=== PATIENT | female | born 1990 | race Caucasian/White ===

== ENCOUNTER 2018-02-26 00:31 | Inpatient (IN) | payer OTHER ==
[2018-02-26] MEDS ORDERED: Oxytocin 10 UNITS/ML VIAL ONE (00:58)
[2018-02-26] MEDS ORDERED: Ondansetron PF 4 MG/2 ML Vial IVP PRN (01:12)
[2018-02-26] MEDS ORDERED: Milk Of Magnesia 30 ML UDCUP PO PRN ×2 (01:12→10:29)
[2018-02-26] MEDS ORDERED: Bisacodyl 10 MG SUPP PR PRN ×2 (01:12→10:29)
[2018-02-26] MEDS ORDERED: Lidocaine 1% (PF) 30 ML VIAL SC PRN (01:12)
[2018-02-26] MEDS ORDERED: Adacel (T-DAP) 0.5 ML VIAL IM ONE ×2 (01:12→10:29)
[2018-02-26] MEDS ORDERED: HYDROcodone/Acetaminophen 5/325 mg Tablet PO PRN ×2 (01:12→10:29)
[2018-02-26] MEDS ORDERED: Promethazine HCl 25 MG/ML VIAL IM PRN (01:12)
[2018-02-26] MEDS ORDERED: NS / Oxytocin 40 units/1000ml 1,000 ML IV PRN (01:12)
[2018-02-26] MEDS ORDERED: NS / Oxytocin 40 units/1000ml 1,000 ML IV SCH (01:15)
[2018-02-26 01:27] VITALS: BMI 32.2
[2018-02-26] MEDS: HYDROcodone/Acetaminophen 5/325 mg Tablet PO PRN ×2 (02:00→02:44)
[2018-02-26 03:00] LABS: Mean Corpuscular HGB CONC 33.6 g/dL (32.0-36.0); Mean Corpuscular Hemoglobin 30.6 pg (27.0-31.0); Mean Corpuscular Volume 91.1 fL (78.0-98.0); Mean Platelet Volume 7.4 fL (7.4-10.4); Platelet Count 227 thou/uL (130-400); RBC Distribution Width 13.2 % (11.5-14.5); Red Blood Cell (RBC) Count 4.58 mill/uL (4.20-5.40)
[2018-02-26] MEDS ORDERED: Labetalol 100 MG TAB PO SCH (03:30)
[2018-02-26 03:37] LABS: HBSAg Index 0.21 S/CO (0-0.99); Hep B Surf Ag Non-Reactive S/CO (NonReactive)
[2018-02-26 04:29] LABS: Syphilis Antibody Nonreactive (Nonreactive); Syphilis Antibody Index 0.03 S/CO (<1.00 Non-Reactive)
[2018-02-26 04:42] LABS: ALT (SGPT) 11 U/L (8-55); AST (SGOT) 16 U/L (5-34); Albumin 3.1 g/dL (3.5-5.0); Alkaline Phosphatase 167 U/L (40-150); Anion Gap 13 mmol/L (10-20); BUN (Urea Nitrogen) 22 mg/dL (7.0-18.7); Bilirubin, Total 0.2 mg/dL (0.2-1.2); Calc. Creatinine Clearance 136 mL/min (70-130); Calcium 8.6 mg/dL (7.8-10.44); Carbon Dioxide 21 mmol/L (22-29); Chloride 105 mmol/L (98-107); Estimated GFR-MDRD 82; Globulin 2.6 g/dL (2.4-3.5); Glucose 108 mg/dL (70-105); Potassium 4.1 mmol/L (3.5-5.1); Protein, Total 5.7 g/dL (6.0-8.3); Sodium 135 mmol/L (136-145)
[2018-02-26] MEDS ORDERED: Docusate Calcium (SURFAK) 240 MG CAP PO SCH (09:00)
[2018-02-26] MEDS: Ferrous Sulfate 325 MG TAB PO SCH ×3 (09:11→15:17)
[2018-02-26] MEDS ORDERED: Benzocaine/Menthol 20-0.5% 60 ML CAN TOP PRN (10:29)
[2018-02-26] MEDS ORDERED: Lanolin Ointment 7 GM TUBE TOP PRN (10:29)
--- NOTE | 2018-02-26 10:29 | PDOC.LDHP ---
Labor and Delivery H&P Chief complaint: contractions, loss of fluid HPI: CTX started at home, labored at home until painful, arrived to L&D complete and pushing. Rapid delivery by OB hospitalist. Current gestational age (weeks): 39 Due date: 02/28/18 Dating criteria: last menstrual period, first trimester ultrasound Grav: 2 Para: 1 OB History Details: Low risk except GDM A1 - well controlled Current complications: gestational diabetes Abnormal US findings: No Past Medical History: None Current medications: pre-gómez vitamins Previous surgical history: none Allergies/Adverse Reactions: Allergies Allergy/AdvReac Type Severity Reaction Status Date / Time No Known Allergies Allergy Verified 02/26/18 01:19 Social history: none - Physical Exam Vital signs reviewed and normal: yes General: NAD, resting, other Heart: RRR Lungs: nonlabored breathing Abdomen: NTTP Extremeties: no edema - Vaginal Exam cm dilated: 10 Effacement: 100% Station: 3+ - OB Labs Blood type: O RH: positive Antibody Screen: negative HIV: negative RPR: negative HEPSAg: negative 1 hour GCT: positive GBS: negative Urine drug screen: not done Rubella: immune - Assessment L&D Assessment: term patient in labor (Precipitous vaginal delivery - see Dr. Bills's notes for details of the delivery.)
[2018-02-26] MEDS ORDERED: Ibuprofen 800 MG TAB PO SCH (14:00)
[2018-02-26] MEDS: Ibuprofen 800 MG TAB PO SCH (17:58)
[2018-02-26] MEDS: Docusate Calcium (SURFAK) 240 MG CAP PO SCH (21:27)
[2018-02-27] MEDS: Ibuprofen 800 MG TAB PO SCH ×2 (02:12→09:29)
[2018-02-27 08:08] VITALS: BP 142/87; TEMP 97.6
[2018-02-27] MEDS: Docusate Calcium (SURFAK) 240 MG CAP PO SCH (09:28)
[2018-02-27] MEDS: Ferrous Sulfate 325 MG TAB PO SCH (09:28)
--- NOTE | 2018-02-27 09:55 | PDOC.PP ---
Post Progress Note Post Day #: 1 Subjective: No c/o. Routine PP care. well. PO intake tolerated: yes Flatus: yes Ambulation: yes Vital Signs (12 hours) Temp Pulse Resp BP BP Pulse Ox 02/27/18 08:00 97.6 F 72 20 142/87 H 97 02/27/18 00:30 97.9 F 81 16 135/83 96 Weight Weight 188 lb - Physical Examination General: NAD Cardiovascular: no m/r/g, RRR Respiratory: clear to auscultation bilaterally, non-labored breathing Abdominal: + bowel sounds, lochia, no distention, appropriately TTP Result Diagrams: 02/26/18 02:50 02/26/18 02:50 Additional Labs: Post Labs Blood Type O POSITIVE 02/26/18 02:50 Hep Bs Antigen Non-Reactive S/CO (NonReactive) 02/26/18 02:50 (1) Active labor at term Code(s): LFO1589 - Status: Acute (2) Vaginal delivery Code(s): O80 - ENCOUNTER FOR FULL-TERM UNCOMPLICATED DELIVERY Status: Acute - Assessment/Plan Routine care D/C home today F/U in 6 weeks.
== END 2018-02-27 14:17 | disposition home or self-care (01) | DRG 807 ==
LOC: L&D/OP 00:31 → L&D-LIB 01:35 → 3SE 09:10
PROVIDERS: ADMIT Family Medicine; ATTEND Family Medicine
PROC: 10E0XZZ Delivery of Products of Conception, External Approach (ICD-10-PCS; principal; 2018-02-26)
DX: O24.420 Gestational diabetes mellitus in childbirth, diet controlled (principal); Z37.0 Single live birth; Z3A.39 39 weeks gestation of pregnancy
CPT/HCPCS: 36415; 80053; 84156; 85027; 86780; 86850; 86900; 86901; 86922; 87340; J2590

== ENCOUNTER 2018-03-13 19:41 | Emergency (ER) | payer OTHER ==
[2018-03-13 20:27] LABS: Bilirubin Negative (Negative); Blood, Urine Large (Negative); Clarity CLOUDY (Clear); Glucose, Urine (Dipstick) Negative (Negative); Leukocyte Large (Negative); Nitrite Negative (Negative); Protein, Urine (Dipstick) 30 mg/dL (Neg-Trace); Specific Gravity, Urine 1.023 (1.002-1.036); Urobilinogen 0.2 mg/dL (0.2-1.0)
[2018-03-13 20:30] LABS: Hyaline Casts/LPF 7-10 HYALINE CAST LPF (0-3 Hyaline); Pathc Cast-AUWi Flag 1.45 (0-2.49); Squamous Epithelial None Seen HPF (0-3)
[2018-03-13 20:32] LABS: Yeast-AUWi Flag 336.4 (0-25.0)
[2018-03-13 20:35] LABS: Bacteria/HPF Rare-Few HPF (None Seen); RBC/HPF 21-50 HPF (0-3); Yeast-All Forms None Seen HPF (None Seen)
[2018-03-13 20:45] LABS: #Basophils 0.1 thou/uL (0.0-0.2); #Eosinphils 0.1 thou/uL (0.0-0.7); #Lymphocytes 1.9 thou/uL (1.20-3.40); #Monocytes 0.8 thou/uL (0.11-0.59); #Neutrophils 8.1 thou/uL (1.40-6.50); %Basophils 0.8 % (0.0-1.0); %Eosinophils 1.3 % (0.0-10.0); %Lymphocytes 17.4 % (21.0-51.0); %Monocytes 7.5 % (0.0-10.0); Mean Corpuscular Hemoglobin 30.8 pg (27.0-31.0); Mean Corpuscular Volume 93.4 fL (78.0-98.0); Mean Platelet Volume 6.9 fL (7.4-10.4); Platelet Count 288 thou/uL (130-400); RBC Distribution Width 12.5 % (11.5-14.5); Red Blood Cell (RBC) Count 5.18 mill/uL (4.20-5.40); White Blood Cell (WBC) Count 11.1 thou/uL (4.8-10.8)
== END 2018-03-13 23:37 | disposition home or self-care (01) ==
LOC: ERS 19:41
DX: O72.1 Other immediate postpartum hemorrhage (principal)
CPT/HCPCS: 36415; 81003; 81015; 84702; 85025; 99284